=== PATIENT | male | born 1980 | race Caucasian/White ===

== ENCOUNTER 2016-12-06 01:29 | Emergency (ER) | payer OTHER ==
[~2016-12-06] VITALS: Ht 170.2 cm; Wt 110.0 kg
[2016-12-06 01:31] VITALS: BP 142/85; PULSE 112; RESP 24; O2SAT 100
[2016-12-06] MEDS ORDERED: SODIUM CHLORIDE 0.9% FLUSH 10 ML FLUSH IVF PRN (02:15)
[2016-12-06 02:27] VITALS: BP 129/81; PULSE 60; RESP 18; TEMP 98; O2SAT 100
[2016-12-06] MEDS ORDERED: LORazepam 2 MG/ML VIAL IV PUSH ONE (02:30)
[2016-12-06 02:33] LABS: BASOPHIL % 0.3 % (0.0-2.0); EOSINOPHIL # 0.1 TH/MM3 (0-0.4); EOSINOPHIL % 1.2 % (0.0-4.0); HEMATOCRIT 49.4 % (39.0-51.0); HEMO FLAGS DIFF FINAL; LYMPH % 19.9 % (9.0-44.0); LYMPHOCYTE # 2.2 TH/MM3 (1.0-4.8); MEAN CELL VOLUME 76.8 FL (80.0-100.0); MEAN CORPUSCULAR HEMOGLOBIN 26.3 PG (27.0-34.0); MEAN CORPUSCULAR HGB CONC 34.2 % (32.0-36.0); MONO % 7.5 % (0.0-8.0); NEUT % 71.1 % (16.0-70.0); PLATELET COUNT 198 TH/MM3 (150-450); RED BLOOD COUNT 6.44 MIL/MM3 (4.50-5.90); RED CELL DISTRIBUTION WIDTH 13.3 % (11.6-17.2); WHITE BLOOD COUNT 11.3 TH/MM3 (4.0-11.0)
--- NOTE | 2016-12-06 02:42 | RADRPT ---
EXAM DATE/TIME: 12/06/2016 02:20 [place] COMPARISON: No previous studies available for comparison. INDICATIONS : Shortness of breath. MEDICAL HISTORY : None. SURGICAL HISTORY : None. ENCOUNTER: Initial ACUITY: 1 day PAIN SCORE: 0/10 LOCATION: Bilateral chest FINDINGS: PA and lateral views of the chest demonstrate the lungs to be symmetrically aerated without evidence of mass, infiltrate or effusion. The cardiomediastinal contours are unremarkable. Osseous structure s are intact. CONCLUSION: No acute cardiopulmonary process. David Taylor MD on December 06, 2016 at 2:40 Board Certified Radiologist. This report was verified electronically.
[2016-12-06 02:43] LABS: APTT (PATIENT) 24.5 SEC (24.3-30.1); INTERNATIONAL NORMALIZED RATIO 0.9 RATIO; PROTHROMBIN TIME - PATIENT 10.3 SEC (9.8-11.6)
[2016-12-06] MEDS ORDERED: SODIUM CHLOR 0.9% 1000 ML INJ 1,000 ML IV ONE (02:45)
[2016-12-06 03:16] LABS: ALKALINE PHOSPHATASE 55 U/L (45-117); ALT (GPT) 47 U/L (12-78); ANION GAP 9 MEQ/L (5-15); AST (GOT) 32 U/L (15-37); BICARBONATE 26.5 MEQ/L (21.0-32.0); BLOOD UREA NITROGEN 9 MG/DL (7-18); CHLORIDE 104 MEQ/L (98-107); CREATINE KINASE 190 U/L (39-308); GLOMERULAR FILTRATION RATE 61 ML/MIN (>89); SODIUM (NA) 139 MEQ/L (136-145); TOTAL BILIRUBIN ADULT 0.8 MG/DL (0.2-1.0)
[2016-12-06 03:20] LABS: POTASSIUM 3.3 MEQ/L (3.5-5.1)
[2016-12-06 03:32] LABS: CKMB 2.5 NG/ML (0.5-3.6)
[2016-12-06 04:22] VITALS: BP 123/63; PULSE 82; RESP 18; O2SAT 100
--- NOTE | 2016-12-06 04:53 | PD ---
HPI Chief Complaint: Respiratory Symptoms Time Seen by Provider: 01:54 Travel History International Travel<30 days: No Contact w/Intl Traveler<30days: No Traveled to known affect area: No History of Present Illness HPI Patient is a 36 year old male who comes in complaining of shortness of breath, palpitations and anxiety. He just drove her from [place] for the past 21 hrs straight. He says he took several caffeine pills, equalling about 1000g of caffeine. He denies having any chest pain. He says that walking around makes his symptoms worse. He says he was feeling fine prior to the trip and taking the caffeine pills. He denies any leg swelling or pain. He has no known heart issues. [facility] Past Medical History Medical History: Denies Significant Hx Diminished Hearing: No Immunizations Current: Yes Past Surgical History Tonsillectomy: Yes Other Surgery: Yes (VASECTOMY) Social History Alcohol Use: No Tobacco Use: No Substance Use: No Allergies-Medications (Allergen,Severity, Reaction): Uncoded Allergies: APPLE BUTTER (Allergy, Mild, Hives, 12/06/16) Reported Meds & Prescriptions Reported Meds & Active Scripts Active No Active Prescriptions or Reported Medications Review of Systems Except as stated in HPI: all other systems reviewed are Neg HENT: No: Headaches, Lightheadedness Cardiovascular: Positive: Palpitations, No: Chest Pain or Discomfort Respiratory: Positive: Shortness of Breath Gastrointestinal: Positive: Nausea, No: Vomiting, Abdominal Pain Skin: No Rash, No Change in Pigmentation Neurologic: No: Weakness, Dizziness Physical Exam Narrative GENERAL: Awake and alert, in mild distress SKIN: Focused skin assessment warm/dry, mild diaphoresis. HEAD: Atraumatic. Normocephalic. EYES: Pupils equal and round. No scleral icterus. ENT: Mucous membranes pink and moist. NECK: Trachea midline. No JVD. CARDIOVASCULAR: Regular rate and rhythm. No murmur appreciated. RESPIRATORY: No accessory muscle use. Clear to auscultation. Breath sounds equal bilaterally. GASTROINTESTINAL: Abdomen soft, non-tender, nondistended. MUSCULOSKELETAL: No obvious deformities. No clubbing. No cyanosis. No edema. NEUROLOGICAL: Awake and alert. No obvious cranial nerve deficits. Motor grossly within normal limits. Normal speech. PSYCHIATRIC: Appropriate mood and affect; insight and judgment normal. Data Data Last Documented VS Vital Signs Date Time Temp Pulse Resp B/P Pulse Ox O2 Delivery O2 Flow Rate FiO2 12/06/16 07:12 65 15 113/64 97 Room Air 12/06/16 02:27 98.0 12/06/16 02:27 2 Orders Ckmb (Isoenzyme) Profile (12/06/16 02:08) Complete Blood Count With Diff (12/06/16 02:08) Comprehensive Metabolic Panel (12/06/16 02:08) D-Dimer (12/06/16 02:08) Prothrombin Time / Inr (Pt) (12/06/16 02:08) Act Partial Throm Time (Ptt) (12/06/16 02:08) Troponin I (12/06/16 02:08) Ecg Monitoring (12/06/16 02:08) Bilateral Bp Monitoring (12/06/16 02:08) Iv Access Insert/Monitor (12/06/16 02:08) Oximetry (12/06/16 02:08) Oxygen Administration (12/06/16 02:08) Sodium Chloride 0.9% Flush (Ns Flush) (12/06/16 02:15) Chest, Pa & Lat (12/06/16 02:08) Lorazepam Inj (Ativan Inj) (12/06/16 02:30) Sodium Chlor 0.9% 1000 Ml Inj (Ns 1000 M (12/06/16 02:45) CKMB (12/06/16 02:14) CKMB% (12/06/16 02:14) Labs Laboratory Tests Test 12/06/16 02:14 White Blood Count 11.3 TH/MM3 Red Blood Count 6.44 MIL/MM3 Hemoglobin 16.9 GM/DL Hematocrit 49.4 % Mean Corpuscular Volume 76.8 FL Mean Corpuscular Hemoglobin 26.3 PG Mean Corpuscular Hemoglobin 34.2 % Concent Red Cell Distribution Width 13.3 % Platelet Count 198 TH/MM3 Mean Platelet Volume 9.4 FL Neutrophils (%) (Auto) 71.1 % Lymphocytes (%) (Auto) 19.9 % Monocytes (%) (Auto) 7.5 % Eosinophils (%) (Auto) 1.2 % Basophils (%) (Auto) 0.3 % Neutrophils # (Auto) 8.0 TH/MM3 Lymphocytes # (Auto) 2.2 TH/MM3 Monocytes # (Auto) 0.8 TH/MM3 Eosinophils # (Auto) 0.1 TH/MM3 Basophils # (Auto) 0.0 TH/MM3 CBC Comment DIFF FINAL Differential Comment Prothrombin Time 10.3 SEC Prothromb Time International 0.9 RATIO Ratio Activated Partial 24.5 SEC Thromboplast Time D-Dimer Quantitative (PE/DVT) LESS THAN 0.19 MG/L FEU Sodium Level 139 MEQ/L Potassium Level 3.3 MEQ/L Chloride Level 104 MEQ/L Carbon Dioxide Level 26.5 MEQ/L Anion Gap 9 MEQ/L Blood Urea Nitrogen 9 MG/DL Creatinine 1.33 MG/DL Estimat Glomerular Filtration 61 ML/MIN Rate Random Glucose 112 MG/DL Calcium Level 9.2 MG/DL Total Bilirubin 0.8 MG/DL Aspartate Amino Transf 32 U/L (AST/SGOT) Alanine Aminotransferase 47 U/L (ALT/SGPT) Alkaline Phosphatase 55 U/L Total Creatine Kinase 190 U/L Creatine Kinase MB 2.5 NG/ML Troponin I LESS THAN 0.02 NG/ML Total Protein 7.0 GM/DL Albumin 3.8 GM/DL MDM Medical Decision Making Medical Screen Exam Complete: Yes Emergency Medical Condition: Yes Medical Record Reviewed: Yes Interpretation(s) ECG shows incomplete RBBB, no ST elevation or depression, NSR at 74. Differential Diagnosis Caffeine toxicity vs electrolyte abnormalities vs dehydration vs anxiety Narrative Course Patient is a 36 year old male who comes in complaining of palpitations and SOB. He never had any chest pain. IV established, labs sent. Patient connected to the document scanner. Given IVF and Ativan Labs show no acute abnormalities. ECG shows no evidence of ischemia. The nurse spoke with poison control who suggests repeat ECG in 2 hrs. Repeat ECG shows no changes, no signs of ischemia. Poison control suggests reassessment when Ativan has worn off. If asymptomatic , can be discharged. After reassessment, patient is completely symptom back. He is completely awake , and says he is feeling 100% better. Patient advised to drink plenty of fluids and rest today. Advised that if he has any chest pain, shortness of breath, palpitations he should return to the ED immediately. Advised to avoid caffeine. He is comfortable with discharge at this time. Advised follow-up with a primary care doctor. Diagnosis Primary Impression: Caffeine overdose Qualified Code: T43.611A - Caffeine overdose, accidental or unintentional, initial encounter Patient Instructions: General Instructions, Palpitations (ED) Additional Instructions: Avoid caffeine. Drink plenty of fluids. Rest today. Return immediately for any worsening symptoms. Follow-up with a primary care doctor. Scripts No Active Prescriptions or Reported Meds Disposition: 01 DISCHARGE HOME Condition: Stable Hannah Banda MD Dec 06, 2016 04:53
[2016-12-06 07:12] VITALS: BP 113/64; PULSE 65; RESP 15; O2SAT 97
--- NOTE | 2016-12-06 15:44 | EKG ---
Date Performed: 12/06/2016 Time Performed: 04:10:19 PTAGE: 36 years EKG: Sinus rhythm BORDERLINE LEFT AXIS DEVIATION INCOMPLETE RIGHT BUNDLE BRANCH BLOCK POSSIBLE LEFT VENTRICULAR HYPERT ROPHY ABNORMAL ECG PREVIOUS TRACING : 12/06/2016 01.53 Compared to prior tracing no significant change DOCTOR: Marcell Wilson Interpretating Date/Time 12/06/2016 15:44:00
--- NOTE | 2016-12-06 15:49 | EKG ---
Date Performed: 12/06/2016 Time Performed: 01:53:51 PTAGE: 36 years EKG: Sinus rhythm INCOMPLETE RIGHT BUNDLE BRANCH BLOCK POSSIBLE LEFT VENTRICULAR HYPERTROPHY ABNORMAL ECG NO PREVIOUS TRACING DOCTOR: Marcell Wilson Interpretating Date/Time 12/06/2016 15:47:53
== END 2016-12-06 07:55 | disposition home or self-care (01) ==
LOC: NEPE 01:29
DX: T43.611A Poisoning by caffeine, accidental (unintentional), initial encounter (principal)
CPT/HCPCS: 71020; 80053; 82550; 82552; 84484; 85025; 85379; 85610; 85730; 93005; 96374; 99285; J2060; J7030